=== PATIENT | male | born 1955 | race Caucasian/White ===

== ENCOUNTER → 2020-02-23 19:00 | Outpatient (ROUT) | payer OTHER, SELFPAY ==
[2020-02-23 19:24] LABS: Add Manual Diff / Slide Review NO; Basophils Absolute Auto 100 /uL (0-100); Basophils Percent Auto 0.9 % (0-2); Eosinophils Absolute Auto 0 /uL (0-450); Eosinophils Percent Auto 0.3 % (2-4); Hematocrit 46.3 % (41-53); Hemoglobin 15.4 g/dL (13.5-17.5); Lymphocytes Absolute Auto 1200 /uL (1100-4500); Lymphocytes Percent Auto 13.2 % (25-40); Mean Corpuscular HGB Conc 33.3 % (30-36); Mean Corpuscular Volume 96.1 fL (80-100); Monocytes Absolute Auto 600 /uL (0-900); Neutrophils Absolute Auto 7100 /uL (1500-7000); Neutrophils Percent Auto 78.6 % (50-75); Platelet Count 404 X10^3/uL (150-400); Red Blood Cell Count 4.82 X10^6/uL (4.5-5.9); Red Cell Distribution Width 12.6 % (11.6-14.8)
[2020-02-23 19:29] LABS: HEMOLYSIS < 15 (0-50)
[2020-02-23 19:38] LABS: Alanine Aminotransferase 34 IU/L (<50); Albumin Globulin Ratio 1.4 (1.0-2.8); Alkaline Phosphatase 72 U/L (38-126); Aspartate Aminotransferase 28 IU/L (17-59); BUN Creatinine Ratio 18.6 (6-22); Bilirubin Total 0.4 mg/dL (0.2-1.3); Blood Urea Nitrogen 13 mg/dL (9-20); Calcium 9.6 mg/dL (8.4-10.2); Carbon Dioxide 27 mmol/L (22-32); Chloride 101 mmol/L (98-107); Cholesterol 171 mg/dL (140-199); Estimated Glomerular Filt Rate > 60.0 mL/min (>60); Globulin 2.8 g/dL (1.7-4.1); Glucose 125 mg/dL (80-110); HDL Cholesterol 63 mg/dL (40-60); LDL Cholesterol Calculated 84 mg/dL (<100); Potassium 4.3 mmol/L (3.4-5.1); Sodium 136 mmol/L (137-145); Total Protein 6.8 g/dL (6.3-8.2); Triglycerides 119 mg/dL (35-150)
[2020-02-26 16:08] LABS: Prostate Specific Antigen 0.348 ng/mL (0.10-4.00)
== END ==
PROVIDERS: Visit Provider Internal Medicine
DX: R53.83 Other fatigue (principal); E78.2 Mixed hyperlipidemia
CPT/HCPCS: 80053; 80061; 84153; 84443; 85025

== ENCOUNTER → 2022-02-17 09:59 | Outpatient (CLI) | payer OTHER, SELFPAY ==
[2022-02-17 12:19] LABS: Hematocrit 40.7 % (41-53); Hemoglobin 14.3 g/dL (13.5-17.5); Mean Corpuscular HGB Conc 35.2 % (30-36); Mean Corpuscular Hemoglobin 32.9 PG (26-34); Mean Corpuscular Volume 93.3 fL (80-100); Platelet Count 305 X10^3/uL (150-400); Red Blood Cell Count 4.36 X10^6/uL (4.5-5.9); Red Cell Distribution Width 12.8 % (11.6-14.8); White Blood Cell Count 6.2 X10^3/uL (4.5-11.0)
[2022-02-17 12:55] LABS: Alanine Aminotransferase 26 IU/L (<50); Albumin 4.3 g/dL (3.5-5.0); Albumin Globulin Ratio 1.7 (1.0-2.8); Alkaline Phosphatase 66 U/L (38-126); Aspartate Aminotransferase 26 IU/L (17-59); BUN Creatinine Ratio 14.6 (6-22); Bilirubin Total 0.4 mg/dL (0.2-1.3); Blood Urea Nitrogen 12 mg/dL (9-20); Calcium 9.3 mg/dL (8.4-10.2); Carbon Dioxide 26 mmol/L (22-32); Chloride 103 mmol/L (98-107); Cholesterol 160 mg/dL (140-199); Estimated Glomerular Filt Rate > 60 mL/min (>60); Globulin 2.6 g/dL (1.7-4.1); Glucose 87 mg/dL (80-110); HDL Cholesterol 58 mg/dL (40-60); HEMOLYSIS < 15 (0-50); LDL Cholesterol Calculated 84 mg/dL (<100); Potassium 4.3 mmol/L (3.4-5.1); Sodium 138 mmol/L (137-145); Total Protein 6.9 g/dL (6.3-8.2); Triglycerides 92 mg/dL (35-150)
[2022-02-17 13:26] LABS: Prostate Specific Antigen 0.596 ng/mL (0.10-4.00)
[2022-02-17 14:18] LABS: TSH w/ Reflex to FT4 1.52 uIU/mL (0.47-4.68)
== END ==
PROVIDERS: PCP Internal Medicine; Referring Provider Internal Medicine; Visit Provider Internal Medicine
DX: Z00.00 Encounter for general adult medical examination without abnormal findings (principal); E78.2 Mixed hyperlipidemia; N52.9 Male erectile dysfunction, unspecified
CPT/HCPCS: 36415; 80053; 80061; 84153; 84443; 85027

== ENCOUNTER 2022-04-28 10:17 | Emergency (ER) | payer OTHER, SELFPAY ==
[2022-04-28 10:20] VITALS: BP 174/83; PULSE 113; RESP 22; TEMP 36.6; O2SAT 94; BMI 24.2
--- NOTE | 2022-04-28 10:29 | DI.RAD.S_ITS ---
PROCEDURE: XR CHEST 1V INDICATIONS: chest pain TECHNIQUE: One view of the chest was acquired. COMPARISON: None. FINDINGS: Surgical changes and devices: None. Lungs and pleura: Lungs are clear. No pleural effusions or pneumothorax. Mediastinum: Mediastinal contours appear normal. Heart size is normal. Bones and chest wall: No suspicious bony lesions. Overlying soft tissues appear unremarkable. IMPRESSION: No acute pulmonary process. Dictated by: Magdalena Matute M.D. on 04/28/2022 at 11:15 Approved by: Magdalena Matute M.D. on 04/28/2022 at 11:15
--- NOTE | 2022-04-28 10:51 | ED_ITS ---
HPI - Chest Pain General Chief Complaint: Chest Pain Stated Complaint: hasnt sleep in days heart racing Time Seen by Provider: 04/28/22 10:37 Source: patient Mode of arrival: Ambulatory Limitations: no limitations History of Present Illness HPI narrative: Patient has a 67-year-old gentleman that complains of insomnia palpitations anxiety chest ago for at rest but also with exertion and was sometimes dyspnea. Patient does have history of hypercholesteremia. He did see his primary care and was placed on lorazepam to help for anxiety and insomnia. He states this is most stress he has had in life, this includes his employment/family and finances. He works for the [employer]. Blood pressure and heart rate noted. Patient does appear very anxious. Is very fidgety with his hands and feet. Denies any chest discomfort at this time. Denies any alcohol abuse or drug abuse. No previous history of echocardiogram or stress test. No primary family history coronary artery disease. No syncope no diaphoresis no nausea. Patient has not used erectile dysfunction medication for over a month. Related Data Previous Rx's Medication Instructions Recorded rosuvastatin 10 mg tablet 10 mg PO DAILY #90 tabs 11/07/21 sildenafil 100 mg tablet 100 mg PO DAILY PRN erectile 02/23/22 dysfunction #30 tabs lorazepam 0.5 mg tablet 0.5 mg PO BID PRN anxiety #20 tabs 05/03/22 mirtazapine 15 mg tablet 15 mg PO BEDTIME #30 tabs 05/03/22 Allergies Allergy/AdvReac Type Severity Reaction Status Date / Time Penicillins Allergy Mild Rash Verified 05/03/22 12:05 Review of Systems Review of Systems Narrative: GENERAL: negative chills, fatigue, malaise, fever, negative sweats. HEENT: negative sinus pain, ear pain, sore throat RESPIRATORY: Pots dyspnea, negative cough CARDIOVASCULAR: Positive chest pain, palpitations, negative diaphoresis/syncope GASTROINTESTINAL: negative nausea, vomiting, abdominal pain : negative dysuria, frequency, hematuria MUSCULOSKELETAL: negative muscle or bony pain SKIN: negative rash, skin lesions NEUROLOGIC: negative weakness, numbness PSYCH: Positive anxiety ROS Unobtainable: All systems reviewed & are unremarkable except as noted in HPI and below Patient History Medical History (Updated 05/03/22 @ 13:08 by Luca Rock MD) Actinic keratoses Chicken pox (~1960) Erectile dysfunction Family history of colon cancer Generalized anxiety disorder Mixed hyperlipidemia Synovial cyst of popliteal space [[place]], right knee Viral URI with cough Surgical History Anesthesia History of hand surgery (~1965) Family History Father Hyperlipidemia Mother Mental health problem Anxiety Brother Hyperlipidemia Sister Hyperlipidemia Alzheimer's disease 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 EYES: Pupils equal round No scleral icterus. ENT: Mucous membranes moist. NECK: Trachea midline. CARDIOVASCULAR: Regular rate and rhythm without murmurs RESPIRATORY: Clear to auscultation. Breath sounds equal bilaterally. No wheezes, rales, or rhonchi. GASTROINTESTINAL: Abdomen soft, non-tender EXTREMITIES: No gross deformities. BACK: No flank tenderness. NEURO: AOx4. SKIN: Warm and dry PSYCH: Is very anxious, is cooperative Initial Vital Signs Initial Vital Signs: Vital Signs Temperature 97.8 F 04/28/22 10:20 Pulse Rate 113 H 04/28/22 10:20 Respiratory Rate 22 04/28/22 10:20 Blood Pressure 174/83 H 04/28/22 10:20 Pulse Oximetry 94 04/28/22 10:20 Oxygen Delivery Method 04/28/22 10:20 Scores HEART Score Heart Score history: Slightly Suspicious Heart Score EKG: Normal Heart Score Age: > or = 65 years old Heart Score risk factors: 1-2 risk factors Heart Score troponin: < or = to normal limit Heart Score Total: 3 Course Course Course Narrative: No new issues during course of stay Orders Ordered: Discontinued Medications Acetaminophen (Acetaminophen 325 Mg Tablet) 975 mg PO NOW ONE Stop: 04/28/22 11:46 Last Admin: 04/28/22 12:35 Dose: Not Given Documented By: SUSAN Aspirin (Aspirin 81 Mg Chew Tab) 324 mg PO NOW ONE Stop: 04/28/22 10:30 Last Admin: 04/28/22 11:09 Dose: 324 mg Documented By: SUSAN Nitroglycerin (Nitroglycerin Oint 1 Inch/Gm Oint...G.) 0.5 inch TOP NOW ONE Stop: 04/28/22 11:46 Last Admin: 04/28/22 12:34 Dose: Not Given Documented By: SUSAN Reevaluation(s) Reevaluation #1: Blood pressure 139/73/pulse 89. Patient resting comfortably at this time however now has mild left chest discomfort. Non reproducible. Blood pressure/v itals improved without intervention. Reviewed results with patient so far. Agrees to try nitro paste Time: 11:45 Reevaluation #2: Nitropaste and IV fluids and Tylenol were not administered from nursing staff. Sister and [id number] are at bedside. I spoke with patient and family regarding my discussion with cardiology. At this time, symptoms likely anxiety driven. Recommends outpatient follow-up with primary care for re-evaluation and outpatient stress test and echocardiogram. I will call primary care now to rev iew results and treatment plan as reviewed with scrap hoist operator. Time: 12:40 Consultations Consultation #1: Spoke with scrap hoist operator dr josé, spoke with her that I had ordered echocardiogram and treadmill stress test for patient for today. However, she states to cancel those tests. Patient can follow-up with primary care for re- evaluation if needs on outpatient basis. Patient symptoms likely anxiety driven. Has low heart score and risk factors. Time: 12:30 Consultation #2: Spoke with primary care, dr rock, agrees with treatment plan and will see patient next week for re-evaluation and may have anxiety medication changes or therapy for patient's stress. Time: 12:45 Vital Signs Vital signs: Vital Signs - 8 hr 04/28/22 10:20 04/28/22 11:00 04/28/22 11:13 Temperature 97.8 F Pulse Rate 113 H 93 H 95 H Respiratory Rate 22 13 22 Blood Pressure 174/83 H Pulse Oximetry 94 92 94 Oxygen Delivery Method Room Air 04/28/22 11:13 04/28/22 11:30 04/28/22 11:30 Temperature Pulse Rate 90 Respiratory Rate 14 Blood Pressure 136/67 139/73 Pulse Oximetry 94 Oxygen Delivery Method 04/28/22 12:00 04/28/22 12:00 Temperature Pulse Rate 85 Respiratory Rate 11 L Blood Pressure 136/66 Pulse Oximetry 96 Oxygen Delivery Method MDM - Chest Pain Differential Diagnosis Differential diagnosis: Likely stable angina, unstable angina pectoris, atypical chest pain, chest pain and other (Anxiety) Lab Data Result diagrams: 04/28/22 10:50 04/28/22 10:50 Labs: Lab Results 04/28/22 04/28/22 04/28/22 Range/Units 10:50 10:50 10:50 WBC 10.2 (4.5-11.0) X10^3/uL RBC 4.41 L (4.5-5.9) X10^6/uL Hgb 14.0 (13.5-17.5) g/dL Hct 41.0 (41-53) % MCV 92.9 (80-100) fL MCH 31.7 (26-34) PG MCHC 34.1 (30-36) % RDW 12.6 (11.6-14.8) % Plt Count 463 H (150-400) X10^3/uL Neut % (Auto) 81.6 H (50-75) % Lymph % (Auto) 9.5 L (25-40) % [place] % (Auto) 8.0 (3-14) % Eos % (Auto) 0.6 L (2-4) % Baso % (Auto) 0.3 (0-2) % Neut # (Auto) 8300 H (2112-3834) /uL Lymph # (Auto) 1000 L (3515-2867) /uL [place] # (Auto) 800 (0-900) /uL Eos # (Auto) 100 (0-450) /uL Baso # (Auto) 0 (0-100) /uL PT 13.5 H (10.1-12.7) SECONDS INR 1.2 (0.9-1.3) APTT 30 (26-36) SECONDS D-Dimer (<500) ng/ml Sodium 133 L (137-145) mmol/L Potassium 4.0 (3.4-5.1) mmol/L Chloride 99 (98-107) mmol/L Carbon Dioxide 24 (22-32) mmol/L BUN 12 (9-20) mg/dL Creatinine 0.65 L (0.66-1.25) mg/dL Estimated GFR > 60 (>60) mL/min BUN/Creatinine Ratio 18.5 (6-22) Glucose 156 H (80-110) mg/dL Calcium 9.1 (8.4-10.2) mg/dL Magnesium 2.0 (1.6-2.3) mg/dL Total Bilirubin 0.3 (0.2-1.3) mg/dL AST 20 (17-59) IU/L ALT 35 (<50) IU/L Alkaline Phosphatase 83 (38-126) U/L Total Creatine Kinase 62 (55-170) U/L CK-MB (CK-2) TNP CK-MB (CK-2) Rel Index TNP Troponin I < 0.012 (0.01-0.034) ng/mL Total Protein 7.2 (6.3-8.2) g/dL Albumin 4.0 (3.5-5.0) g/dL Globulin 3.2 (1.7-4.1) g/dL Albumin/Globulin Ratio 1.3 (1.0-2.8) Lipase 110 (23-300) U/L 04/28/22 Range/Units 10:50 WBC (4.5-11.0) X10^3/uL RBC (4.5-5.9) X10^6/uL Hgb (13.5-17.5) g/dL Hct (41-53) % MCV (80-100) fL MCH (26-34) PG MCHC (30-36) % RDW (11.6-14.8) % Plt Count (150-400) X10^3/uL Neut % (Auto) (50-75) % Lymph % (Auto) (25-40) % [place] % (Auto) (3-14) % Eos % (Auto) (2-4) % Baso % (Auto) (0-2) % Neut # (Auto) (1263-8425) /uL Lymph # (Auto) (4900-5946) /uL [place] # (Auto) (0-900) /uL Eos # (Auto) (0-450) /uL Baso # (Auto) (0-100) /uL PT (10.1-12.7) SECONDS INR (0.9-1.3) APTT (26-36) SECONDS D-Dimer 263 (<500) ng/ml Sodium (137-145) mmol/L Potassium (3.4-5.1) mmol/L Chloride (98-107) mmol/L Carbon Dioxide (22-32) mmol/L BUN (9-20) mg/dL Creatinine (0.66-1.25) mg/dL Estimated GFR (>60) mL/min BUN/Creatinine Ratio (6-22) Glucose (80-110) mg/dL Calcium (8.4-10.2) mg/dL Magnesium (1.6-2.3) mg/dL Total Bilirubin (0.2-1.3) mg/dL AST (17-59) IU/L ALT (<50) IU/L Alkaline Phosphatase (38-126) U/L Total Creatine Kinase (55-170) U/L CK-MB (CK-2) CK-MB (CK-2) Rel Index Troponin I (0.01-0.034) ng/mL Total Protein (6.3-8.2) g/dL Albumin (3.5-5.0) g/dL Globulin (1.7-4.1) g/dL Albumin/Globulin Ratio (1.0-2.8) Lipase (23-300) U/L Imaging Data Chest x-ray: Radiologist's Impression: [address] [address] XRay Report Signed Patient: Floyd Burciaga MR#: [id number] : 1955 Acct:[id number] Age/Sex: 67 / M Date of Service: 04/28/22 Loc: ED Accession Number: [id number] ?? Procedure: XR chest 1V Ordering Provider: Shreyas Bonilla MD PROCEDURE:? XR CHEST 1V ? INDICATIONS:? chest pain ? TECHNIQUE:? One view of the chest was acquired.? ? COMPARISON:? None. ? FINDINGS:? ? Surgical changes and devices:? None.? ? Lungs and pleura:? Lungs are clear.? No pleural effusions or pneumothorax.? ? Mediastinum:? Mediastinal contours appear normal.? Heart size is normal.? ? Bones and chest wall:? No suspicious bony lesions.? Overlying soft tissues appear unremarkable.? ? IMPRESSION:? No acute pulmonary process. ? ? Dictated by: Magdalena Matute M.D. on 04/28/2022 at 11:15 ? ? Approved by: Magdalena Matute M.D. on 04/28/2022 at 11:15 ? ECG Data Interpretation: Sinus tachycardia rate 101 otherwise normal EKG no ST elevation or depression MDM Narrative Medical decision making narrative: 67-year-old male patient here for complaints of anxiety insomnia palpitations tremors and chest discomfort. Has had a lot of stressors in his life from work and family and finances. Only getting about 1 hour sleep at night. Discomfort in the chest sometimes reproducible sometimes not. Sometimes with exertion sometimes at rest. Sometimes with a lot of anxiety. Differential diagnosis includes but not limited to aortic dissection pulmonary embolism atypical chest pain angina/unstable angina. I did review images as well as EKG and blood work. I did speak with cardiology services and recommend discharge home for outpatient stress test and echocardiogram. Symptoms likely stemming from his anxiety. Return precautions reviewed with patient. No repeat troponin at this time. Symptoms ongoing for 2 weeks. Discharge Plan Departure Patient Disposition: Home Clinical Impression: Anxiety Chest pain Qualifiers: Chest pain type: unspecified Qualified Code(s): R07.9 - Chest pain, unspecified Instructions: DI for Anxiety -- Adult, DI for Chest Pain Activity Restrictions/Additional Instructions: Please see family doctor next week for re-evaluation and medication review for anxiety as well as possible therapy. He has been contacted today for your visit here and has reviewed your results. Cardiology Services have been contacted and recommend further outpatient testing with your family doctor hand. Please do take time off work this weekend, work note has been provided for you. Do try to find a way to relax and get good rest. Return if worse if any questions or concerns Prescriptions: No Action rosuvastatin 10 mg tablet 10 mg PO DAILY Qty: 90 1RF sildenafil 100 mg tablet 100 mg PO DAILY PRN (Reason: erectile dysfunction) Qty: 30 5RF mirtazapine 15 mg tablet 15 mg PO BEDTIME Qty: 30 2RF lorazepam 0.5 mg tablet 0.5 mg PO BID PRN (Reason: anxiety) Qty: 20 1RF Referrals: Luca Rock MD [Primary Care Provider] - Stand Alone Forms: Work Release Note Visit Report Forms: Patient Portal/API
[2022-04-28 11:00] VITALS: PULSE 93; RESP 13; O2SAT 92
[2022-04-28 11:04] LABS: Add Manual Diff / Slide Review NO; Basophils Absolute Auto 0 /uL (0-100); Basophils Percent Auto 0.3 % (0-2); Eosinophils Absolute Auto 100 /uL (0-450); Eosinophils Percent Auto 0.6 % (2-4); Lymphocytes Absolute Auto 1000 /uL (1100-4500); Lymphocytes Percent Auto 9.5 % (25-40); Mean Corpuscular HGB Conc 34.1 % (30-36); Mean Corpuscular Hemoglobin 31.7 PG (26-34); Mean Corpuscular Volume 92.9 fL (80-100); Monocytes Absolute Auto 800 /uL (0-900); Neutrophils Absolute Auto 8300 /uL (1500-7000); Neutrophils Percent Auto 81.6 % (50-75); Platelet Count 463 X10^3/uL (150-400); Red Blood Cell Count 4.41 X10^6/uL (4.5-5.9); Red Cell Distribution Width 12.6 % (11.6-14.8); White Blood Cell Count 10.2 X10^3/uL (4.5-11.0)
[2022-04-28] MEDS: ASPIRIN 81 MG CHEW TAB 324 MG PO (11:09)
[2022-04-28 11:12] LABS: INR 1.2 (0.9-1.3); Prothrombin Time 13.5 SECONDS (10.1-12.7)
[2022-04-28 11:13] VITALS: BP 136/67; PULSE 95; RESP 22; O2SAT 94
[2022-04-28 11:15] LABS: PTT Partial Thromboplastin Tim 30 SECONDS (26-36)
[2022-04-28 11:16] LABS: Alanine Aminotransferase 35 IU/L (<50); Albumin Globulin Ratio 1.3 (1.0-2.8); Alkaline Phosphatase 83 U/L (38-126); Aspartate Aminotransferase 20 IU/L (17-59); BUN Creatinine Ratio 18.5 (6-22); Bilirubin Total 0.3 mg/dL (0.2-1.3); Blood Urea Nitrogen 12 mg/dL (9-20); Calcium 9.1 mg/dL (8.4-10.2); Carbon Dioxide 24 mmol/L (22-32); Chloride 99 mmol/L (98-107); Creatine Kinase 62 U/L (55-170); Estimated Glomerular Filt Rate > 60 mL/min (>60); Globulin 3.2 g/dL (1.7-4.1); Glucose 156 mg/dL (80-110); HEMOLYSIS < 15 (0-50); Lipase 110 U/L (23-300); Sodium 133 mmol/L (137-145); Total Protein 7.2 g/dL (6.3-8.2)
[2022-04-28 11:19] LABS: D Dimer 263 ng/ml (<500)
[2022-04-28 11:28] LABS: Troponin I < 0.012 ng/mL (0.01-0.034)
[2022-04-28 11:30] VITALS: BP 139/73; PULSE 90; RESP 14; O2SAT 94
[2022-04-28 12:00] VITALS: BP 136/66; PULSE 85; RESP 11; O2SAT 96
== END 2022-04-28 13:25 | disposition home or self-care (01) ==
PROVIDERS: Emergency Provider Emergency Medicine; PCP Internal Medicine
DX: R07.9 Chest pain, unspecified (principal); F41.9 Anxiety disorder, unspecified
CPT/HCPCS: 36415; 71045; 80053; 82550; 83690; 83735; 84484; 85025; 85379; 85610; 85730; 93005; 99284

== ENCOUNTER 2022-05-22 19:33 | Emergency (ER) | payer OTHER, SELFPAY ==
[2022-05-22 19:44] VITALS: BP 135/81; PULSE 109; RESP 30; TEMP 36.4; O2SAT 97; BMI 23.6
--- NOTE | 2022-05-22 21:54 | ED.ANXIETY ---
HPI - Anxiety <Bulmaro Murcia DO - Last Filed: 05/23/22 16:14> General Chief Complaint: Anxiety Stated Complaint: panic attack Time Seen by Provider: 05/22/22 21:33 Mode of arrival: Wheelchair History of Present Illness HPI narrative: 67-year-old male nonsmoker with history of hyperlipidemia, ED in generalized anxiety disorder presents with daughter and and chief complaint of worsening if not crippling anxiety that is greatly affecting his life. He denies any suicidal or homicidal ideations. He has been battling increasing episodes of anxiety for least the past few months and has been managed by his primary care provider. His primary triggers appear to be surrounding his financial situation and some family issues. He is not been eating or drinking as much and despite having access to prescription for lorazepam which initially was as needed but for the past month has been written b.i.d. his symptoms continue to worsen. He denies any auditory or visual hallucinations. Denies any alcohol or street drugs. He is very fearful and often times so overwhelmed by anxiety that he is unable to speak or communicate, he is had a rapid decline over the past few weeks. He and family are requesting help and would even consider the concept of hospitalization if deemed necessary Related Data Previous Rx's Medication Instructions Recorded sildenafil 100 mg tablet 100 mg PO DAILY PRN erectile 02/23/22 dysfunction #30 tabs rosuvastatin 10 mg tablet 10 mg PO DAILY #90 tabs 05/08/22 mirtazapine 15 mg tablet 30 mg PO BEDTIME #60 tabs 05/25/22 Allergies Allergy/AdvReac Type Severity Reaction Status Date / Time Penicillins Allergy Mild Rash Verified 05/25/22 11:40 olanzapine AdvReac Severe dystonic Verified 05/25/22 13:14 reaction Review of Systems <Bulmaro Murcia DO - Last Filed: 05/23/22 16:14> Review of Systems Narrative: GENERAL: Denies chills, fatigue, malaise, fever, sweats. HEENT: Denies sinus pain, ear pain, sore throat, difficulty swallowing, dizziness. RESPIRATORY: Denies dyspnea, cough, wheezing, hemoptysis, sputum. CARDIOVASCULAR: Denies chest pain, palpitations, orthopnea, edema, GASTROINTESTINAL: Denies nausea, vomiting, abdominal pain, diarrhea, constipation, melena. : Denies dysuria, frequency, incontinence, hematuria, urinary retention. MUSCULOSKELETAL: denies weakness, joint pain, or bony pain SKIN: Denies rash, skin lesions, or other NEUROLOGIC: Denies weakness, headache, numbness, change in speech, confusion, seizures, incoordination. PSYCHIATRIC: See HPI 12 point review of systems is negative except for those stated above Patient History <Bulmaro Murcia DO - Last Filed: 05/23/22 16:14> Medical History Actinic keratoses Chicken pox (~1959) Erectile dysfunction Family history of colon cancer Generalized anxiety disorder Mixed hyperlipidemia Synovial cyst of popliteal space [[place]], right knee Viral URI with cough Surgical History Anesthesia History of hand surgery (~1964) Family History Father Hyperlipidemia Mother Mental health problem Anxiety Brother Hyperlipidemia Sister Hyperlipidemia Alzheimer's disease Social History (System 05/24/22 @ 09:43 by Ileana Castro) details: (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 Well-developed patient, in obvious distress, tearful, paranoid, rapid breathing HEAD: Atraumatic. Normocephalic. EYES: Pupils equal round and reactive. Extraocular motions intact. No scleral icterus. No injection or drainage. ENT: Nose without bleeding, purulent drainage. Throat without erythema, tonsillar hypertrophy or exudate. Airway patent. NECK: Trachea midline. Non tender CARDIOVASCULAR: Regular rate and rhythm without murmurs, gallops, or rubs. RESPIRATORY: Clear to auscultation. Breath sounds equal bilaterally. No wheezes, rales, or rhonchi. GASTROINTESTINAL: Abdomen soft, non-tender, nondistended. EXTREMITIES: No edema or joint tenderness. BACK: Nontender without deformity or crepitance. No flank tenderness. NEURO: AOx3. SKIN: No rash or erythema of visible areas Initial Vital Signs Initial Vital Signs: Vital Signs Temperature 97.6 F 05/22/22 19:44 Pulse Rate 109 H 05/22/22 19:44 Respiratory Rate 30 H 05/22/22 19:44 Blood Pressure 135/81 05/22/22 19:44 Pulse Oximetry 97 05/22/22 19:44 Oxygen Delivery Method 05/22/22 19:44 <Shreyas Bonilla MD - Last Filed: 05/29/22 08:24> Initial Vital Signs Initial Vital Signs: Vital Signs Temperature 97.6 F 05/22/22 19:44 Pulse Rate 109 H 05/22/22 19:44 Respiratory Rate 30 H 05/22/22 19:44 Blood Pressure 135/81 05/22/22 19:44 Pulse Oximetry 97 05/22/22 19:44 Oxygen Delivery Method 05/22/22 19:44 Course <Bulmaro Murcia DO - Last Filed: 05/23/22 16:14> Orders Ordered: Discontinued Medications Lorazepam (Lorazepam 2 Mg/Ml Inj) 0.5 mg IV NOW ONE Stop: 05/22/22 23:38 Last Admin: 05/23/22 00:07 Dose: 0.5 mg Documented By: SANTOS Lorazepam (Lorazepam 2 Mg/Ml Inj) 1 mg IV NOW ONE Stop: 05/23/22 06:21 Last Admin: 05/23/22 06:26 Dose: 1 mg Documented By: VALENTIN Lorazepam (Lorazepam 2 Mg/Ml Inj) 1 mg IV NOW ONE Stop: 05/23/22 13:04 Last Admin: 05/23/22 13:36 Dose: 1 mg Documented By: SUSAN Potassium Chloride (Potassium Chloride 20 Meq/15 Ml Udc) 40 meq PO NOW ONE Stop: 05/23/22 06:21 Last Admin: 05/23/22 06:26 Dose: 40 meq Documented By: VALENTIN Reevaluation(s) Reevaluation #1: After brief initial evaluation I have had a much length ear bedside discussion with patient and his family and we sure the opinion that 1st performing a medical clearance and then requesting consultation by social Work is in his best interest. He wants help and recognizes the need. His anxieties certainly adversely affecting his ability to care for himself Vital Signs Vital signs: Vital Signs - 8 hr 05/23/22 12:25 05/23/22 12:26 05/23/22 12:26 Pulse Rate 107 H 107 H Blood Pressure 182/88 H Pulse Oximetry 97 98 05/23/22 12:30 05/23/22 13:00 05/23/22 13:30 Pulse Rate 104 H 106 H 85 Blood Pressure Pulse Oximetry 97 95 96 05/23/22 14:00 05/23/22 14:30 05/23/22 14:54 Pulse Rate 81 80 81 Blood Pressure Pulse Oximetry 94 93 93 05/23/22 14:55 Pulse Rate Blood Pressure 140/71 Pulse Oximetry <Shreyas Bonilla MD - Last Filed: 05/29/22 08:24> Course Course Narrative: May 23, 2022 at 7:[address] Murcia, patient will need placement. Social work to see patient. Patient has seen primary care for outpatient management and attempt for anxiety control with Ativan. Orders Ordered: Discontinued Medications Lorazepam (Lorazepam 2 Mg/Ml Inj) 0.5 mg IV NOW ONE Stop: 05/22/22 23:38 Last Admin: 05/23/22 00:07 Dose: 0.5 mg Documented By: SANTOS Lorazepam (Lorazepam 2 Mg/Ml Inj) 1 mg IV NOW ONE Stop: 05/23/22 06:21 Last Admin: 05/23/22 06:26 Dose: 1 mg Documented By: VALENTIN Lorazepam (Lorazepam 2 Mg/Ml Inj) 1 mg IV NOW ONE Stop: 05/23/22 13:04 Last Admin: 05/23/22 13:36 Dose: 1 mg Documented By: SUSAN Potassium Chloride (Potassium Chloride 20 Meq/15 Ml Udc) 40 meq PO NOW ONE Stop: 05/23/22 06:21 Last Admin: 05/23/22 06:26 Dose: 40 meq Documented By: VALENTIN Reevaluation(s) Reevaluation #2: Patient is awake alert and oriented x3. Clear speech. He does not want to be admitted to the hospital or go to psychiatric facility. Denies SI or HI. He does agree with evaluation by social lizzeth Thomas for outpatient follow-up in 2 days with his primary care for revision of his anxiety medications. Would not deep more maintenance medication other than lorazepam. Time: 14:52 Consultations Consultation #1: Spoke with social lizzeth Thomas. Patient is much more relaxed. Denies any SI or HI. Does not want hospitalization. Patient not meeting criteria for being detained. He is cooperative and oriented. He does have plan in place to follow up with primary care this for medication changes. Time: 14:53 Vital Signs Vital signs: Vital Signs - 8 hr 05/23/22 12:25 05/23/22 12:26 05/23/22 12:26 Pulse Rate 107 H 107 H Blood Pressure 182/88 H Pulse Oximetry 97 98 05/23/22 12:30 05/23/22 13:00 05/23/22 13:30 Pulse Rate 104 H 106 H 85 Blood Pressure Pulse Oximetry 97 95 96 05/23/22 14:00 05/23/22 14:30 05/23/22 14:54 Pulse Rate 81 80 81 Blood Pressure Pulse Oximetry 94 93 93 05/23/22 14:55 Pulse Rate Blood Pressure 140/71 Pulse Oximetry MDM - Anxiety <Bulmaro Murcia, - Last Filed: 05/23/22 16:14> Lab Data Result diagrams: 05/23/22 00:09 05/23/22 00:09 Labs: Lab Results 05/23/22 05/23/22 05/23/22 Range/Units 00:09 00:09 00:09 WBC (4.5-11.0) X10^3/uL RBC (4.5-5.9) X10^6/uL Hgb (13.5-17.5) g/dL Hct (41-53) % MCV (80-100) fL MCH (26-34) PG MCHC (30-36) % RDW (11.6-14.8) % Plt Count (150-400) X10^3/uL Neut % (Auto) (50-75) % Lymph % (Auto) (25-40) % Reagan % (Auto) (3-14) % Eos % (Auto) (2-4) % Baso % (Auto) (0-2) % Neut # (Auto) (8378-5475) /uL Lymph # (Auto) (9533-9261) /uL Reagan # (Auto) (0-900) /uL Eos # (Auto) (0-450) /uL Baso # (Auto) (0-100) /uL D-Dimer < 215 (<500) ng/ml Sodium (137-145) mmol/L Potassium (3.4-5.1) mmol/L Chloride (98-107) mmol/L Carbon Dioxide (22-32) mmol/L BUN (9-20) mg/dL Creatinine (0.66-1.25) mg/dL Estimated GFR (>60) mL/min BUN/Creatinine Ratio (6-22) Glucose (80-110) mg/dL Calcium (8.4-10.2) mg/dL Magnesium (1.6-2.3) mg/dL Total Bilirubin (0.2-1.3) mg/dL AST (17-59) IU/L ALT (<50) IU/L Alkaline Phosphatase (38-126) U/L Total Creatine Kinase (55-170) U/L CK-MB (CK-2) (<2.37) ng/mL CK-MB (CK-2) Rel Index (1.5-5.0) % Troponin I (0.01-0.034) ng/mL Total Protein (6.3-8.2) g/dL Albumin (3.5-5.0) g/dL Globulin (1.7-4.1) g/dL Albumin/Globulin Ratio (1.0-2.8) Lipase (23-300) U/L TSH 1.66 (0.47-4.68) uIU/mL Urine RBC (0-5/HPF) Urine WBC (0-5/HPF) Ur Squamous Epith Cells (0-5/HPF) Urine Bacteria (None) Urine Mucus (Negative) Ethyl Alcohol < 10 ( - 10) mg/dL SARS-CoV-2 (PCR) (Negative) Influenza A (RT-PCR) (NEGATIVE) Influenza B (RT-PCR) (NEGATIVE) RSV (PCR) (Negative) 05/23/22 05/23/22 05/23/22 Range/Units 00:09 00:09 00:13 WBC 8.1 (4.5-11.0) X10^3/uL RBC 4.34 L (4.5-5.9) X10^6/uL Hgb 13.9 (13.5-17.5) g/dL Hct 40.7 L (41-53) % MCV 93.9 (80-100) fL MCH 32.0 (26-34) PG MCHC 34.1 (30-36) % RDW 12.7 (11.6-14.8) % Plt Count 391 (150-400) X10^3/uL Neut % (Auto) 63.7 (50-75) % Lymph % (Auto) 26.2 (25-40) % Reagan % (Auto) 8.1 (3-14) % Eos % (Auto) 1.1 L (2-4) % Baso % (Auto) 0.9 (0-2) % Neut # (Auto) 5100 (9612-0326) /uL Lymph # (Auto) 2100 (7634-4358) /uL Reagan # (Auto) 700 (0-900) /uL Eos # (Auto) 100 (0-450) /uL Baso # (Auto) 100 (0-100) /uL D-Dimer (<500) ng/ml Sodium 137 (137-145) mmol/L Potassium 3.1 L (3.4-5.1) mmol/L Chloride 104 (98-107) mmol/L Carbon Dioxide 20 L (22-32) mmol/L BUN 20 (9-20) mg/dL Creatinine 0.78 (0.66-1.25) mg/dL Estimated GFR > 60 (>60) mL/min BUN/Creatinine Ratio 25.6 H (6-22) Glucose 95 (80-110) mg/dL Calcium 8.7 (8.4-10.2) mg/dL Magnesium 2.1 (1.6-2.3) mg/dL Total Bilirubin 0.6 (0.2-1.3) mg/dL AST 33 (17-59) IU/L ALT 33 (<50) IU/L Alkaline Phosphatase 76 (38-126) U/L Total Creatine Kinase 389 H (55-170) U/L CK-MB (CK-2) 5.48 H (<2.37) ng/mL CK-MB (CK-2) Rel Index 1.4 L (1.5-5.0) % Troponin I < 0.012 (0.01-0.034) ng/mL Total Protein 6.8 (6.3-8.2) g/dL Albumin 3.9 (3.5-5.0) g/dL Globulin 2.9 (1.7-4.1) g/dL Albumin/Globulin Ratio 1.3 (1.0-2.8) Lipase 126 (23-300) U/L TSH (0.47-4.68) uIU/mL Urine RBC (0-5/HPF) Urine WBC (0-5/HPF) Ur Squamous Epith Cells (0-5/HPF) Urine Bacteria (None) Urine Mucus (Negative) Ethyl Alcohol ( - 10) mg/dL SARS-CoV-2 (PCR) Negative (Negative) Influenza A (RT-PCR) Flu a negative (NEGATIVE) Influenza B (RT-PCR) Flu b negative (NEGATIVE) RSV (PCR) Negative (Negative) 05/23/22 Range/Units 00:25 WBC (4.5-11.0) X10^3/uL RBC (4.5-5.9) X10^6/uL Hgb (13.5-17.5) g/dL Hct (41-53) % MCV (80-100) fL MCH (26-34) PG MCHC (30-36) % RDW (11.6-14.8) % Plt Count (150-400) X10^3/uL Neut % (Auto) (50-75) % Lymph % (Auto) (25-40) % Reagan % (Auto) (3-14) % Eos % (Auto) (2-4) % Baso % (Auto) (0-2) % Neut # (Auto) (5412-7438) /uL Lymph # (Auto) (8014-2115) /uL Reagan # (Auto) (0-900) /uL Eos # (Auto) (0-450) /uL Baso # (Auto) (0-100) /uL D-Dimer (<500) ng/ml Sodium (137-145) mmol/L Potassium (3.4-5.1) mmol/L Chloride (98-107) mmol/L Carbon Dioxide (22-32) mmol/L BUN (9-20) mg/dL Creatinine (0.66-1.25) mg/dL Estimated GFR (>60) mL/min BUN/Creatinine Ratio (6-22) Glucose (80-110) mg/dL Calcium (8.4-10.2) mg/dL Magnesium (1.6-2.3) mg/dL Total Bilirubin (0.2-1.3) mg/dL AST (17-59) IU/L ALT (<50) IU/L Alkaline Phosphatase (38-126) U/L Total Creatine Kinase (55-170) U/L CK-MB (CK-2) (<2.37) ng/mL CK-MB (CK-2) Rel Index (1.5-5.0) % Troponin I (0.01-0.034) ng/mL Total Protein (6.3-8.2) g/dL Albumin (3.5-5.0) g/dL Globulin (1.7-4.1) g/dL Albumin/Globulin Ratio (1.0-2.8) Lipase (23-300) U/L TSH (0.47-4.68) uIU/mL Urine RBC 0-1/hpf (0-5/HPF) Urine WBC None seen (0-5/HPF) Ur Squamous Epith Cells 0-1 /hpf (0-5/HPF) Urine Bacteria Few (2-10) H (None) Urine Mucus 1+ H (Negative) Ethyl Alcohol ( - 10) mg/dL SARS-CoV-2 (PCR) (Negative) Influenza A (RT-PCR) (NEGATIVE) Influenza B (RT-PCR) (NEGATIVE) RSV (PCR) (Negative) Urine Dip Bedside Urine Glucose Negative Bedside Urine Bilirubin - Negative Bedside Urine Ketone +/- 5 Urine Specific [place] 1.025 Bedside Urine Occult Blood - Negative Bedside Urine pH 6.0 Bedside Urine Protein - Negative Bedside Urine Urobilinogen - Negative Bedside Urine Nitrite - Negative Bedside Urine Leukocytes - Negative Esterase <Shreyas Bonilla MD - Last Filed: 05/29/22 08:24> Differential Diagnosis Differential diagnosis: Likely acute anxiety and other (SI/HI) Lab Data Labs: Lab Results 05/23/22 05/23/22 05/23/22 Range/Units 00:09 00:09 00:09 WBC (4.5-11.0) X10^3/uL RBC (4.5-5.9) X10^6/uL Hgb (13.5-17.5) g/dL Hct (41-53) % MCV (80-100) fL MCH (26-34) PG MCHC (30-36) % RDW (11.6-14.8) % Plt Count (150-400) X10^3/uL Neut % (Auto) (50-75) % Lymph % (Auto) (25-40) % Reagan % (Auto) (3-14) % Eos % (Auto) (2-4) % Baso % (Auto) (0-2) % Neut # (Auto) (2565-8771) /uL Lymph # (Auto) (2553-4702) /uL Reagan # (Auto) (0-900) /uL Eos # (Auto) (0-450) /uL Baso # (Auto) (0-100) /uL D-Dimer < 215 (<500) ng/ml Sodium (137-145) mmol/L Potassium (3.4-5.1) mmol/L Chloride (98-107) mmol/L Carbon Dioxide (22-32) mmol/L BUN (9-20) mg/dL Creatinine (0.66-1.25) mg/dL Estimated GFR (>60) mL/min BUN/Creatinine Ratio (6-22) Glucose (80-110) mg/dL Calcium (8.4-10.2) mg/dL Magnesium (1.6-2.3) mg/dL Total Bilirubin (0.2-1.3) mg/dL AST (17-59) IU/L ALT (<50) IU/L Alkaline Phosphatase (38-126) U/L Total Creatine Kinase (55-170) U/L CK-MB (CK-2) (<2.37) ng/mL CK-MB (CK-2) Rel Index (1.5-5.0) % Troponin I (0.01-0.034) ng/mL Total Protein (6.3-8.2) g/dL Albumin (3.5-5.0) g/dL Globulin (1.7-4.1) g/dL Albumin/Globulin Ratio (1.0-2.8) Lipase (23-300) U/L TSH 1.66 (0.47-4.68) uIU/mL Urine RBC (0-5/HPF) Urine WBC (0-5/HPF) Ur Squamous Epith Cells (0-5/HPF) Urine Bacteria (None) Urine Mucus (Negative) Ethyl Alcohol < 10 ( - 10) mg/dL SARS-CoV-2 (PCR) (Negative) Influenza A (RT-PCR) (NEGATIVE) Influenza B (RT-PCR) (NEGATIVE) RSV (PCR) (Negative) 05/23/22 05/23/22 05/23/22 Range/Units 00:09 00:09 00:13 WBC 8.1 (4.5-11.0) X10^3/uL RBC 4.34 L (4.5-5.9) X10^6/uL Hgb 13.9 (13.5-17.5) g/dL Hct 40.7 L (41-53) % MCV 93.9 (80-100) fL MCH 32.0 (26-34) PG MCHC 34.1 (30-36) % RDW 12.7 (11.6-14.8) % Plt Count 391 (150-400) X10^3/uL Neut % (Auto) 63.7 (50-75) % Lymph % (Auto) 26.2 (25-40) % Reagan % (Auto) 8.1 (3-14) % Eos % (Auto) 1.1 L (2-4) % Baso % (Auto) 0.9 (0-2) % Neut # (Auto) 5100 (6685-0535) /uL Lymph # (Auto) 2100 (4896-3290) /uL Reagan # (Auto) 700 (0-900) /uL Eos # (Auto) 100 (0-450) /uL Baso # (Auto) 100 (0-100) /uL D-Dimer (<500) ng/ml Sodium 137 (137-145) mmol/L Potassium 3.1 L (3.4-5.1) mmol/L Chloride 104 (98-107) mmol/L Carbon Dioxide 20 L (22-32) mmol/L BUN 20 (9-20) mg/dL Creatinine 0.78 (0.66-1.25) mg/dL Estimated GFR > 60 (>60) mL/min BUN/Creatinine Ratio 25.6 H (6-22) Glucose 95 (80-110) mg/dL Calcium 8.7 (8.4-10.2) mg/dL Magnesium 2.1 (1.6-2.3) mg/dL Total Bilirubin 0.6 (0.2-1.3) mg/dL AST 33 (17-59) IU/L ALT 33 (<50) IU/L Alkaline Phosphatase 76 (38-126) U/L Total Creatine Kinase 389 H (55-170) U/L CK-MB (CK-2) 5.48 H (<2.37) ng/mL CK-MB (CK-2) Rel Index 1.4 L (1.5-5.0) % Troponin I < 0.012 (0.01-0.034) ng/mL Total Protein 6.8 (6.3-8.2) g/dL Albumin 3.9 (3.5-5.0) g/dL Globulin 2.9 (1.7-4.1) g/dL Albumin/Globulin Ratio 1.3 (1.0-2.8) Lipase 126 (23-300) U/L TSH (0.47-4.68) uIU/mL Urine RBC (0-5/HPF) Urine WBC (0-5/HPF) Ur Squamous Epith Cells (0-5/HPF) Urine Bacteria (None) Urine Mucus (Negative) Ethyl Alcohol ( - 10) mg/dL SARS-CoV-2 (PCR) Negative (Negative) Influenza A (RT-PCR) Flu a negative (NEGATIVE) Influenza B (RT-PCR) Flu b negative (NEGATIVE) RSV (PCR) Negative (Negative) 05/23/22 Range/Units 00:25 WBC (4.5-11.0) X10^3/uL RBC (4.5-5.9) X10^6/uL Hgb (13.5-17.5) g/dL Hct (41-53) % MCV (80-100) fL MCH (26-34) PG MCHC (30-36) % RDW (11.6-14.8) % Plt Count (150-400) X10^3/uL Neut % (Auto) (50-75) % Lymph % (Auto) (25-40) % Reagan % (Auto) (3-14) % Eos % (Auto) (2-4) % Baso % (Auto) (0-2) % Neut # (Auto) (9586-9589) /uL Lymph # (Auto) (1496-2227) /uL Reagan # (Auto) (0-900) /uL Eos # (Auto) (0-450) /uL Baso # (Auto) (0-100) /uL D-Dimer (<500) ng/ml Sodium (137-145) mmol/L Potassium (3.4-5.1) mmol/L Chloride (98-107) mmol/L Carbon Dioxide (22-32) mmol/L BUN (9-20) mg/dL Creatinine (0.66-1.25) mg/dL Estimated GFR (>60) mL/min BUN/Creatinine Ratio (6-22) Glucose (80-110) mg/dL Calcium (8.4-10.2) mg/dL Magnesium (1.6-2.3) mg/dL Total Bilirubin (0.2-1.3) mg/dL AST (17-59) IU/L ALT (<50) IU/L Alkaline Phosphatase (38-126) U/L Total Creatine Kinase (55-170) U/L CK-MB (CK-2) (<2.37) ng/mL CK-MB (CK-2) Rel Index (1.5-5.0) % Troponin I (0.01-0.034) ng/mL Total Protein (6.3-8.2) g/dL Albumin (3.5-5.0) g/dL Globulin (1.7-4.1) g/dL Albumin/Globulin Ratio (1.0-2.8) Lipase (23-300) U/L TSH (0.47-4.68) uIU/mL Urine RBC 0-1/hpf (0-5/HPF) Urine WBC None seen (0-5/HPF) Ur Squamous Epith Cells 0-1 /hpf (0-5/HPF) Urine Bacteria Few (2-10) H (None) Urine Mucus 1+ H (Negative) Ethyl Alcohol ( - 10) mg/dL SARS-CoV-2 (PCR) (Negative) Influenza A (RT-PCR) (NEGATIVE) Influenza B (RT-PCR) (NEGATIVE) RSV (PCR) (Negative) Urine Dip Bedside Urine Glucose Negative Bedside Urine Bilirubin - Negative Bedside Urine Ketone +/- 5 Urine Specific [place] 1.025 Bedside Urine Occult Blood - Negative Bedside Urine pH 6.0 Bedside Urine Protein - Negative Bedside Urine Urobilinogen - Negative Bedside Urine Nitrite - Negative Bedside Urine Leukocytes - Negative Esterase MDM Narrative Medical decision making narrative: Appropriate for discharge home. At time of discharge patient much more relaxed and has had reviewed with social workMartha, treatment plan for follow up with primary care in 2 days as scheduled and will need supplemental anxiety medication instead of lorazepam. Patient is comfortable with this plan. Return precautions reviewed with him. Not toxic at discharge. No SI or HI. No hallucinations. No agitation. Discharge Plan Departure Patient Disposition: Home Clinical Impression: Generalized anxiety disorder Instructions: DI for Anxiety -- Adult Activity Restrictions/Additional Instructions: No driving or operating machinery today or when taking prescribed anxiety medication. Short course of lorazepam has been provided for you until you see your doctor in 2 days. Be sure to review with your family doctor alternative medication for your anxiety in place of lorazepam. Return if worse if any questions or concerns. Prescriptions: No Action sildenafil 100 mg tablet 100 mg PO DAILY PRN (Reason: erectile dysfunction) Qty: 30 5RF rosuvastatin 10 mg tablet 10 mg PO DAILY Qty: 90 3RF mirtazapine 15 mg tablet 30 mg PO BEDTIME Qty: 60 2RF Referrals: Luca Rock MD [Primary Care Provider] - Visit Report Forms: Patient Portal/API
[2022-05-23] VITALS (25 sets, daily range): BP systolic 103–182; BP diastolic 55–88; PULSE 80–107; RESP 18–95; O2SAT 91–98
[2022-05-23] MEDS: LORazepam 2 MG/ML INJ 0.5 MG IV (00:07)
[2022-05-23 00:18] LABS: Add Manual Diff / Slide Review NO; Basophils Absolute Auto 100 /uL (0-100); Basophils Percent Auto 0.9 % (0-2); Eosinophils Absolute Auto 100 /uL (0-450); Eosinophils Percent Auto 1.1 % (2-4); Hematocrit 40.7 % (41-53); Hemoglobin 13.9 g/dL (13.5-17.5); Lymphocytes Absolute Auto 2100 /uL (1100-4500); Lymphocytes Percent Auto 26.2 % (25-40); Mean Corpuscular HGB Conc 34.1 % (30-36); Mean Corpuscular Volume 93.9 fL (80-100); Monocytes Absolute Auto 700 /uL (0-900); Monocytes Percent Auto 8.1 % (3-14); Neutrophils Absolute Auto 5100 /uL (1500-7000); Neutrophils Percent Auto 63.7 % (50-75); Platelet Count 391 X10^3/uL (150-400); Red Blood Cell Count 4.34 X10^6/uL (4.5-5.9); Red Cell Distribution Width 12.7 % (11.6-14.8); White Blood Cell Count 8.1 X10^3/uL (4.5-11.0)
[2022-05-23 00:33] LABS: D Dimer < 215 ng/ml (<500)
[2022-05-23 00:34] LABS: Alanine Aminotransferase 33 IU/L (<50); Albumin 3.9 g/dL (3.5-5.0); Albumin Globulin Ratio 1.3 (1.0-2.8); Alkaline Phosphatase 76 U/L (38-126); Aspartate Aminotransferase 33 IU/L (17-59); BUN Creatinine Ratio 25.6 (6-22); Bilirubin Total 0.6 mg/dL (0.2-1.3); Blood Urea Nitrogen 20 mg/dL (9-20); Calcium 8.7 mg/dL (8.4-10.2); Carbon Dioxide 20 mmol/L (22-32); Chloride 104 mmol/L (98-107); Creatine Kinase 389 U/L (55-170); Estimated Glomerular Filt Rate > 60 mL/min (>60); Globulin 2.9 g/dL (1.7-4.1); Glucose 95 mg/dL (80-110); HEMOLYSIS < 15 (0-50); Lipase 126 U/L (23-300); Magnesium 2.1 mg/dL (1.6-2.3); Potassium 3.1 mmol/L (3.4-5.1); Sodium 137 mmol/L (137-145); Total Protein 6.8 g/dL (6.3-8.2)
[2022-05-23 00:44] LABS: Troponin I < 0.012 ng/mL (0.01-0.034)
[2022-05-23 00:49] LABS: CKMB % Relative Index 1.4 % (1.5-5.0); Creatine Kinase MB 5.48 ng/mL (<2.37)
[2022-05-23 00:51] LABS: Bacteria Urine Few (2-10); Mucus Urine 1+ (Negative); RBC Urine 0-1/HPF (0-5/HPF); Squamous Epithelial Cell Urine 0-1 /HPF (0-5/HPF); WBC Urine None Seen (0-5/HPF)
[2022-05-23 00:53] LABS: Ethanol (ETOH) < 10 mg/dL
[2022-05-23 01:03] LABS: TSH w/ Reflex to FT4 1.66 uIU/mL (0.47-4.68)
[2022-05-23 01:08] LABS: Influenza A - CEPHEID Flu A NEGATIVE (NEGATIVE); Influenza B - CEPHEID Flu B NEGATIVE (NEGATIVE); Respiratory Syncytial Virus Negative (Negative)
[2022-05-23 01:09] LABS: COVID-19 CEPHEID 4-PLEX PCR Negative (Negative)
[2022-05-23] MEDS: POTASSIUM CHLORIDE 20 MEQ/15 ML UDC 40 MEQ PO (06:26)
[2022-05-23] MEDS: LORazepam 2 MG/ML INJ 1 MG IV ×2 (06:26→13:36)
--- NOTE | 2022-05-23 13:30 | CM.SWNOTE ---
Addendum entered by ELBERT Nicholson 05/24/22 13:40: Pt returned to the ED today, 05/24/22 following a similar episode of panic this morning around 8:30am. Pt's reports pt thrashing, uncontrolled movements, inability to articulate what was happening. Pt received ativan in ED and is now calm and cooperative. Pt able to engage in interview and reports feeling shame and regret for sins he has committed in his life. Pt's assures him that he is forgiven. Pt agrees with voluntary hospitalization and understands the process to get accepted will involve a phone screen. YANDEL called [facility] to check bed availability and [facility] and [facility] both have available beds. YANDEL will send fax to these facilities once patient is medically clear. ELBERT Nicholson Addendum entered by ELBERT Nicholson 05/23/22 14:10: Pt received 1mg ativan PRN for anxiety. SW met pt in room and he was able to participate in interview. Pt presented as calm and cooperative and able to answer questions. Pt denies SI or HI. Pt reports that he does not want to pursue inpatient hospitalization at this time. Pt reports that he has an appointment with his PCP, Dr. Rock on 05/25. YANDEL instructed pt to discuss usp solution to underlying panic/anxiety disorder, such as an SSRI. YANDEL explained that benzos like ativan are not a good termite inspector solution and that an SSRI or something similar would be a better maintenance drug. Pt agreeable to discussing with PCP on . Pt's spouse is reaching out to pharmacy to check on refills for pt's PRN ativan and sleep medication. YANDEL discussed with Dr. Bonilla, who is agreeable to pt discharging home with a plan to follow up with PCP on . YANDEL called [facility] and rescinded referral. ELBERT Nicholson Original Note: BULK DRIVER - Curriculum Development Coordinator Assessment BULK DRIVER - Curriculum Development Coordinator Assessment Start: 05/23/22 13:12 Freq: Status: Active Protocol: Document 05/23/22 13:12 TM (Rec: 05/23/22 13:30 TM [id number]) BULK DRIVER/Curriculum Development Coordinator Assessment Time Spent with Patient Start date 05/23/22 Visit Start Time 12:45 End date 05/23/22 Visit End Time 13:15 Mental Health Screening Include Onset, Duration, Intensity Presenting Problem Pt presents with severe anxiety and panic attack. Pt appears gravely disabled. Precipitating Event(s) Pt's reports that patient 's panick attacks have been escalating for the last few weeks. Triggers include stress at work, daughter's divorce and fear of legal fees, and a mother in law that was gravely ill and staying with pt. Current Behavioral Health Provider(s) pt's PCP Dr. Luca Rock Include Facility, Provider, Ph. # prescribes lorazepam .5mg twice daily/PRN. Pt also prescribed mirtazapine for sleep, 15mg nightly. Psych. Hx Mental Health and Chemical Pt has suffered panic attacks Dependency since 1996. The last panic attack that was this disabling was at the start of Habboid in 2019. No history of substance use/ chemical dependency. Family Hx of Behavioral Abuse Pt's mother suffered anxiety, possible bipolar disorder. Psychiatric Hospitalizations (date(s)/ None. location) Psychosocial information & Support Pt has supportive spouse and Systems sisters. 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 Legal Concerns Legal Matters - Outstanding Issues None. Mental Status Orientation (Person/Place/Time) Pt unable to answer orientation questions. A&Ox1 Stated Mood Pt unable to answer question. Pt's body is restless and moving around and pt has labored breathing. Pt able to follow with eyes. Affect (Congruent with Mood?) Broad. Thought Content - Specify/Describe Pt unable to answer. unable to Obsessions, Delusions, Hallucinations assess. Thought Processes (Pbrmdxc-Jbkibgzi-Cxfz Unable to answer. unable to Bywfdpto-Cubdsjli-Wneyajmekg- assess. Ohmzaccfmitonp-Fivffeo-Tpfsayrcptaj- Thought Blocking) Speech (Gcvgah-Lxsc-Xrkzktx-Rapid-Soft- Pt currently non verbal. Loud-Pressured) Motor (Kzcekc-Bacrexlsm-Nqlg-Other) excessive - pt's limbs constantly moving and labored breathing. Insight (Xzqi-Qohq-Xqsj/Limited) unable to assess. Judgement (Tyvt-Alrz-Ouuw/Limited) unable to assess. Impulse Control (Adequate-Impaired) unable to assess. Memory (Jrohsvqgi-Ixnjqw-Vhsesn, unable to assess. Impaired-Intact) Concentration (Intact-Impaired) impaired. Attention (Intact-Impaired) impaired. Behavior (Appropriate-Inappropriate) Pt unable to remain attentive; labored breathing, psychomotor agitation, able to hold eye contact, unable to respond to verbal questions, constant body movement. Risk Assessment Suicidal Ideation (Plan) No: unable to assess; pt was previously asked by MD hours ago and he denied. Homicidal Ideation (Plan) No: unable to assess; pt was previously asked by MD hours ago and he denied. Intervention Intervention SW met pt and his spouse and sisters at bedside to complete MH evaluation. Pt was unable to meaningfully participate in interview due to anxiety symptoms. Pt's reports that pt has not been sleeping at night and that his body is constantly moving. Pt's reports that pt's appetite is unchanged but he has not been drinking as much water as usual. SW attempted to interview pt but he was unable to answer questions. Per spouse, pt's anxiety is generally worse in the morning and the evening. Pt appeared distressed during interview, breathing heavy and constantly moving limbs. Pt able to maintain eye contact but not answer SW questions. Plan RA Plan At this time, pt can not be considered good stephanie voluntary due to inability to participate in interview. YANDEL discussed with ED provider who agrees that [facility] should be called to evaluate. ELBERT Nicholson
== END 2022-05-23 15:59 | disposition home or self-care (01) ==
PROVIDERS: Emergency Medicine; Emergency Provider Emergency Medicine; PCP Internal Medicine
DX: F41.1 Generalized anxiety disorder (principal); Z20.822 Contact with and (suspected) exposure to COVID-19
CPT/HCPCS: 0241U; 36415; 80053; 80320; 81003; 81015; 82550; 82553; 83690; 83735; 84443; 84484; 85025; 85379; 87086; 93005; 96374; 96376; 99284; J2060

== ENCOUNTER 2022-05-24 09:46 | Emergency (ER) | payer OTHER, SELFPAY ==
[2022-05-24] VITALS (26 sets, daily range): BP systolic 102–173; BP diastolic 57–91; PULSE 81–115; RESP 21–25; TEMP 36.5; O2SAT 93–99
--- NOTE | 2022-05-24 10:24 | DI.RAD.S_ITS ---
PROCEDURE: XR CHEST 1V INDICATIONS: chest pain TECHNIQUE: One view of the chest was acquired. COMPARISON: [facility], CR, XR CHEST 1V, 04/28/2022, 10:51. FINDINGS: Surgical changes and devices: None. Lungs and pleura: Lungs are clear. No pleural effusions or pneumothorax. Mediastinum: Mediastinal contours appear normal. Heart size is normal. Bones and chest wall: No suspicious bony lesions. Overlying soft tissues appear unremarkable. IMPRESSION: No acute cardiopulmonary findings. Dictated by: Martha Leonard M.D. on 05/24/2022 at 11:26 Approved by: Martha Leonard M.D. on 05/24/2022 at 11:26
[2022-05-24 10:29] LABS: Add Manual Diff / Slide Review NO; Basophils Absolute Auto 0 /uL (0-100); Basophils Percent Auto 0.7 % (0-2); Eosinophils Absolute Auto 0 /uL (0-450); Eosinophils Percent Auto 0.5 % (2-4); Hematocrit 44.8 % (41-53); Hemoglobin 15.6 g/dL (13.5-17.5); Lymphocytes Absolute Auto 1400 /uL (1100-4500); Lymphocytes Percent Auto 21.9 % (25-40); Mean Corpuscular HGB Conc 34.7 % (30-36); Mean Corpuscular Hemoglobin 32.1 PG (26-34); Mean Corpuscular Volume 92.5 fL (80-100); Monocytes Absolute Auto 400 /uL (0-900); Monocytes Percent Auto 6.9 % (3-14); Neutrophils Absolute Auto 4400 /uL (1500-7000); Platelet Count 407 X10^3/uL (150-400); Red Blood Cell Count 4.84 X10^6/uL (4.5-5.9); Red Cell Distribution Width 12.7 % (11.6-14.8); White Blood Cell Count 6.2 X10^3/uL (4.5-11.0)
[2022-05-24 10:31] LABS: INR 1.1 (0.9-1.3)
[2022-05-24 10:33] LABS: PTT Partial Thromboplastin Tim 30 SECONDS (26-36)
[2022-05-24 10:37] LABS: Alanine Aminotransferase 31 IU/L (<50); Albumin 4.3 g/dL (3.5-5.0); Albumin Globulin Ratio 1.3 (1.0-2.8); Alkaline Phosphatase 83 U/L (38-126); Aspartate Aminotransferase 28 IU/L (17-59); BUN Creatinine Ratio 19.7 (6-22); Bilirubin Total 0.8 mg/dL (0.2-1.3); Blood Urea Nitrogen 14 mg/dL (9-20); Calcium 9.5 mg/dL (8.4-10.2); Carbon Dioxide 17 mmol/L (22-32); Chloride 105 mmol/L (98-107); Creatine Kinase 181 U/L (55-170); Estimated Glomerular Filt Rate > 60 mL/min (>60); Globulin 3.2 g/dL (1.7-4.1); Glucose 98 mg/dL (80-110); HEMOLYSIS < 15 (0-50); Lipase 124 U/L (23-300); Potassium 3.6 mmol/L (3.4-5.1); Sodium 135 mmol/L (137-145); Total Protein 7.5 g/dL (6.3-8.2)
--- NOTE | 2022-05-24 11:01 | PC.NURSE ---
Family came to the nurses station to report they have a video of the patient saying my life is over. I informed patient that the doctor would be in to the room shortly to speak with them in private. Family then stood outside the patient's room. I asked if I could assist them and she said the family member in the room asked her to step outside the room. I ask the lady to either step back into the room or to wait in the lobby. The woman was standing right next to nurses station and in ear shot of protected patient information conversations between nurses. Primary RN advised.
[2022-05-24 11:11] LABS: CKMB % Relative Index 1.2 % (1.5-5.0); Creatine Kinase MB 2.22 ng/mL (<2.37); Troponin I < 0.012 ng/mL (0.01-0.034)
--- NOTE | 2022-05-24 11:12 | ED.ANXIETY ---
HPI - Anxiety General Chief Complaint: Anxiety Stated Complaint: Panic attack Time Seen by Provider: 05/24/22 10:13 Source: patient and EMS Mode of arrival: EMS History of Present Illness HPI narrative: Patient is a 67-year-old male history of severe anxiety, hyperlipidemia, presenting today with anxiety and panic attack. He was seen and evaluated yesterday he spent numerous hours in the emergency department was evaluated by social work. He currently is unable to provide much history I have reviewed the chart, yesterday after Ativan he was not suicidal or homicidal. He was discharged home with 1 tablet of lorazepam. He says he did take pill last night before bed and another 1 this morning. However his anxiety has gotten worse. The only thing he is able to get out is that he feels like he is failed his family. He has 2 very supportive family members at bedside. I attempted interviewing patient without them but he really is not able to communicate due to severe panic. Related Data Previous Rx's Medication Instructions Recorded sildenafil 100 mg tablet 100 mg PO DAILY PRN erectile 02/23/22 dysfunction #30 tabs lorazepam 0.5 mg tablet 0.5 mg PO BID PRN anxiety #20 tabs 05/03/22 mirtazapine 15 mg tablet 15 mg PO BEDTIME #30 tabs 05/03/22 rosuvastatin 10 mg tablet 10 mg PO DAILY #90 tabs 05/08/22 lorazepam 1 mg tablet 1 mg PO TID PRN anxiety #6 tabs 05/23/22 lorazepam 1 mg tablet (Ativan) 1 mg PO Q6HR PRN anxiety #2 tabs 05/24/22 olanzapine 5 mg tablet 5 mg PO BEDTIME #10 tabs 05/24/22 Allergies Allergy/AdvReac Type Severity Reaction Status Date / Time Penicillins Allergy Mild Rash Verified 05/24/22 09:43 Review of Systems Review of Systems ROS Unobtainable: Unobtainable due to mental condition Patient History Medical History Actinic keratoses Chicken pox (~1959) Erectile dysfunction Family history of colon cancer Generalized anxiety disorder Mixed hyperlipidemia Synovial cyst of popliteal space [[place]], right knee Viral URI with cough Surgical History Anesthesia History of hand surgery (~1964) Family History Father Hyperlipidemia Mother Mental health problem Anxiety Brother Hyperlipidemia Sister Hyperlipidemia Alzheimer's disease Social History (System 05/24/22 @ 09:43 by Ileana Castro) details: (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 Normoactive bowel sounds all 4 quadrants. No guarding or rebound. EXTREMITIES: Normal range of motion, no clubbing or edema. Neurovascularly intact NEUROLOGICAL: Alert and oriented x4. Moving all extremities SKIN: Warm, dry, no laceration, no petechiae, no rashes or lesions. Course Orders Ordered: ED Orders 05/24/22 11:26 Consult to AUTOMATIC LUMP MAKING MACHINE TENDER - Electroneurodiagnostic Technologist Stat 05/24/22 11:28 EKG-12 Lead Stat 05/24/22 12:48 CT head/brain wo con Stat 05/24/22 13:30 Urine Drug Screen, Rapid Stat Urine Microscopic Stat Discontinued Medications Aspirin (Aspirin 81 Mg Chew Tab) 324 mg PO NOW ONE Stop: 05/24/22 10:24 Last Admin: 05/24/22 10:37 Dose: Not Given Documented By: MENA Lorazepam (Lorazepam 2 Mg/Ml Inj) 2 mg IV NOW ONE Stop: 05/24/22 11:24 Last Admin: 05/24/22 11:41 Dose: 2 mg Documented By: DIEGO Lorazepam (Lorazepam 2 Mg/Ml Inj) 1 mg IV NOW ONE Stop: 05/24/22 15:23 Last Admin: 05/24/22 16:20 Dose: 1 mg Documented By: RB Vital Signs Vital signs: Vital Signs - 8 hr 05/24/22 12:13 05/24/22 12:30 05/24/22 13:02 Pulse Rate 92 H 89 81 Respiratory Rate 25 H Blood Pressure Pulse Oximetry 93 95 Oxygen Delivery Method Room Air Room Air 05/24/22 13:04 05/24/22 13:04 05/24/22 13:30 Pulse Rate 82 Respiratory Rate Blood Pressure 102/57 L 138/63 Pulse Oximetry 97 Oxygen Delivery Method 05/24/22 13:30 05/24/22 13:45 05/24/22 13:45 Pulse Rate 84 82 Respiratory Rate 24 23 Blood Pressure 119/59 L Pulse Oximetry 96 95 Oxygen Delivery Method 05/24/22 14:00 05/24/22 14:00 05/24/22 14:15 Pulse Rate 85 Respiratory Rate 24 Blood Pressure 129/64 130/63 Pulse Oximetry 96 Oxygen Delivery Method 05/24/22 14:15 05/24/22 14:30 05/24/22 14:30 Pulse Rate 81 85 Respiratory Rate 24 25 H Blood Pressure 127/62 Pulse Oximetry 96 97 Oxygen Delivery Method 05/24/22 14:45 05/24/22 14:45 05/24/22 15:00 Pulse Rate 81 Respiratory Rate 21 Blood Pressure 122/61 136/69 Pulse Oximetry 96 Oxygen Delivery Method 05/24/22 15:00 05/24/22 15:15 05/24/22 15:15 Pulse Rate 89 92 H Respiratory Rate 21 Blood Pressure 126/68 Pulse Oximetry 98 99 Oxygen Delivery Method 05/24/22 15:30 05/24/22 15:30 05/24/22 15:45 Pulse Rate 96 H Respiratory Rate Blood Pressure 133/76 133/74 Pulse Oximetry 98 Oxygen Delivery Method 05/24/22 15:45 05/24/22 16:00 05/24/22 16:00 Pulse Rate 95 H 92 H Respiratory Rate 24 22 Blood Pressure 136/70 Pulse Oximetry 97 96 Oxygen Delivery Method 05/24/22 16:15 05/24/22 16:15 05/24/22 16:30 Pulse Rate 90 Respiratory Rate 24 Blood Pressure 129/66 127/68 Pulse Oximetry 98 Oxygen Delivery Method 05/24/22 16:30 05/24/22 16:40 05/24/22 16:40 Pulse Rate 89 87 Respiratory Rate Blood Pressure 119/62 Pulse Oximetry 96 96 Oxygen Delivery Method 05/24/22 16:45 05/24/22 16:45 Pulse Rate 89 Respiratory Rate Blood Pressure 124/64 Pulse Oximetry 96 Oxygen Delivery Method [facility] - Anxiety Lab Data Result diagrams: 05/24/22 10:12 05/24/22 10:12 Labs: Lab Results 05/24/22 05/24/22 05/24/22 Range/Units 10:12 10:12 10:12 WBC 6.2 (4.5-11.0) X10^3/uL RBC 4.84 (4.5-5.9) X10^6/uL Hgb 15.6 (13.5-17.5) g/dL Hct 44.8 (41-53) % MCV 92.5 (80-100) fL MCH 32.1 (26-34) PG MCHC 34.7 (30-36) % RDW 12.7 (11.6-14.8) % Plt Count 407 H (150-400) X10^3/uL Neut % (Auto) 70.0 (50-75) % Lymph % (Auto) 21.9 L (25-40) % [place] % (Auto) 6.9 (3-14) % Eos % (Auto) 0.5 L (2-4) % Baso % (Auto) 0.7 (0-2) % Neut # (Auto) 4400 (4533-6995) /uL Lymph # (Auto) 1400 (1166-1007) /uL [place] # (Auto) 400 (0-900) /uL Eos # (Auto) 0 (0-450) /uL Baso # (Auto) 0 (0-100) /uL PT 13.0 H (10.1-12.7) SECONDS INR 1.1 (0.9-1.3) APTT 30 (26-36) SECONDS Sodium 135 L (137-145) mmol/L Potassium 3.6 (3.4-5.1) mmol/L Chloride 105 (98-107) mmol/L Carbon Dioxide 17 L (22-32) mmol/L BUN 14 (9-20) mg/dL Creatinine 0.71 (0.66-1.25) mg/dL Estimated GFR > 60 (>60) mL/min BUN/Creatinine Ratio 19.7 (6-22) Glucose 98 (80-110) mg/dL Calcium 9.5 (8.4-10.2) mg/dL Magnesium 2.0 (1.6-2.3) mg/dL Total Bilirubin 0.8 (0.2-1.3) mg/dL AST 28 (17-59) IU/L ALT 31 (<50) IU/L Alkaline Phosphatase 83 (38-126) U/L Total Creatine Kinase 181 H D (55-170) U/L CK-MB (CK-2) 2.22 (<2.37) ng/mL CK-MB (CK-2) Rel Index 1.2 L (1.5-5.0) % Troponin I < 0.012 (0.01-0.034) ng/mL Total Protein 7.5 (6.3-8.2) g/dL Albumin 4.3 (3.5-5.0) g/dL Globulin 3.2 (1.7-4.1) g/dL Albumin/Globulin Ratio 1.3 (1.0-2.8) Lipase 124 (23-300) U/L Urine RBC (0-5/HPF) Urine WBC (0-5/HPF) Ur Squamous Epith Cells (0-5/HPF) Urine Bacteria (None) Ur Culture Indicated? U Opiates 300ng/mL cut (Negative) Ur Oxycodone Screen (Negative) Urine Methadone Screen (Negative) Ur Barbiturates Screen (Negative) U Tricyclic Antidepress (Negative) Ur Phencyclidine Scrn (Negative) Ur Amphetamines Screen (Negative) U Methamphetamines Scrn (Negative) Ur MDMA Scrn (Ecstasy) (Negative) U Benzodiazepines Scrn (Negative) Urine Cocaine Screen (Negative) U Marijuana (THC) Screen (Negative) Ethyl Alcohol ( - 10) mg/dL 05/24/22 05/24/22 05/24/22 Range/Units 10:12 13:30 13:30 WBC (4.5-11.0) X10^3/uL RBC (4.5-5.9) X10^6/uL Hgb (13.5-17.5) g/dL Hct (41-53) % MCV (80-100) fL MCH (26-34) PG MCHC (30-36) % RDW (11.6-14.8) % Plt Count (150-400) X10^3/uL Neut % (Auto) (50-75) % Lymph % (Auto) (25-40) % [place] % (Auto) (3-14) % Eos % (Auto) (2-4) % Baso % (Auto) (0-2) % Neut # (Auto) (2119-3450) /uL Lymph # (Auto) (2011-9440) /uL [place] # (Auto) (0-900) /uL Eos # (Auto) (0-450) /uL Baso # (Auto) (0-100) /uL PT (10.1-12.7) SECONDS INR (0.9-1.3) APTT (26-36) SECONDS Sodium (137-145) mmol/L Potassium (3.4-5.1) mmol/L Chloride (98-107) mmol/L Carbon Dioxide (22-32) mmol/L BUN (9-20) mg/dL Creatinine (0.66-1.25) mg/dL Estimated GFR (>60) mL/min BUN/Creatinine Ratio (6-22) Glucose (80-110) mg/dL Calcium (8.4-10.2) mg/dL Magnesium (1.6-2.3) mg/dL Total Bilirubin (0.2-1.3) mg/dL AST (17-59) IU/L ALT (<50) IU/L Alkaline Phosphatase (38-126) U/L Total Creatine Kinase (55-170) U/L CK-MB (CK-2) (<2.37) ng/mL CK-MB (CK-2) Rel Index (1.5-5.0) % Troponin I (0.01-0.034) ng/mL Total Protein (6.3-8.2) g/dL Albumin (3.5-5.0) g/dL Globulin (1.7-4.1) g/dL Albumin/Globulin Ratio (1.0-2.8) Lipase (23-300) U/L Urine RBC None seen (0-5/HPF) Urine WBC 0-1/hpf (0-5/HPF) Ur Squamous Epith Cells None seen (0-5/HPF) Urine Bacteria None seen (None) Ur Culture Indicated? Cult not indicated U Opiates 300ng/mL cut Negative (Negative) Ur Oxycodone Screen Negative (Negative) Urine Methadone Screen Negative (Negative) Ur Barbiturates Screen Negative (Negative) U Tricyclic Antidepress Negative (Negative) Ur Phencyclidine Scrn Negative (Negative) Ur Amphetamines Screen Negative (Negative) U Methamphetamines Scrn Negative (Negative) Ur MDMA Scrn (Ecstasy) Negative (Negative) U Benzodiazepines Scrn Positive H (Negative) Urine Cocaine Screen Negative (Negative) U Marijuana (THC) Screen Negative (Negative) Ethyl Alcohol < 10 ( - 10) mg/dL Urine Dip Bedside Urine Glucose Negative Bedside Urine Bilirubin - Negative Bedside Urine Ketone + 15 Urine Specific [facility] 1.020 Bedside Urine Occult Blood - Negative Bedside Urine pH 6.0 Bedside Urine Protein - Negative Bedside Urine Urobilinogen 0.2 Bedside Urine Nitrite - Negative Bedside Urine Leukocytes - Negative Esterase Imaging Data CT scan - head: Radiologist's Impression: Signed Patient: Floyd Burciaga MR#: [id number] : 1955 Acct:[id number] Age/Sex: 67 / M Date of Service: 05/24/22 Loc: ED Accession Number: [id number] ?? Procedure: CT head/brain wo con Ordering Provider: Barbie Young D.O. PROCEDURE:? CT HEAD/BRAIN WO CON ? INDICATIONS:? posible new seizure ? TECHNIQUE:? Noncontrast 4.5 mm thick angled axial sections acquired from the foramen magnum to the vertex, with coronal and sagittal reformats.? For radiation dose reduction, the following was used:? automated exposure control, adjustment of mA and/or kV according to patient size.? ? COMPARISON:? None. ? FINDINGS:? Image quality:? Excellent.? ? CSF spaces:? Basal cisterns are patent.? No extra-axial fluid collections.? Ventricles are normal in size and shape.? ? Brain:? No midline shift.? No intracranial masses or hemorrhage.? Cloud-white matter interface is normal.? ? Skull and face:? Calvarium and visualized facial bones are intact, without suspicious lesions.? ? Sinuses:? Visualized sinuses and mastoids are clear.? ? IMPRESSION:? No acute intracranial findings. ? ? Dictated by: Martha Leonard M.D. on 05/24/2022 at 13:37 ? ? Chest x-ray: Radiologist's Impression: [facility] [place] [id number] XRay Report Signed Patient: Floyd Burciaga MR#: [id number] : 1955 Acct:[id number] Age/Sex: 67 / M Date of Service: 05/24/22 Loc: ED Accession Number: [id number] ?? Procedure: XR chest 1V Ordering Provider: Barbie Young D.O. PROCEDURE:? XR CHEST 1V ? INDICATIONS:? chest pain ? TECHNIQUE:? One view of the chest was acquired.? ? COMPARISON:? [facility], CR, XR CHEST 1V, 04/28/2022, 10:51. ? FINDINGS:? ? Surgical changes and devices:? None.? ? Lungs and pleura:? Lungs are clear.? No pleural effusions or pneumothorax.? ? Mediastinum:? Mediastinal contours appear normal.? Heart size is normal.? ? Bones and chest wall:? No suspicious bony lesions.? Overlying soft tissues appear unremarkable.? ? IMPRESSION:? No acute cardiopulmonary findings. ? ? Dictated by: Martha Leonard M.D. on 05/24/2022 at 11:26? ECG Data Interpretation: Normal sinus rhythm rate 101 W[place] interval 126 QRS 72 QTC 453 Q-waves noted in lead 3 similar to previous EKG no ST changes actually looks mildly improved from 2 days ago. MDM Narrative Medical decision making narrative: Patient presents with severe anxiety unable to verbalize. He is given 2 mg of Ativan and is able to verbalize a bit more. Denies any suicidal or homicidal ideations. He does not report crippling or disabling anxiety although he presents with it. Not able to communicate or participate in care until after he would 2 mg of Ativan. reports that he may have been shaking and stared off into space at some point in time. Concern for possible seizure. Head CT was done for this reason head CT is negative. Social work has been in to evaluate patient. PCP Dr. Rock has been involved in case today as well I have spoken with him. He recommends adding olanzapine. He is an appointment with Dr. Rock tomorrow. At this time after social work evaluation he does not meet criteria for even voluntary placement and mental health facility. This is discussed with family. He is given couple more Ativan tablets and olanzapine to see if it will help him get through the night to visit his primary care provider tomorrow. At this time blood work and further workup in the ED is otherwise reassuring. Social work has given patient and family multiple resources that they can use as an outpatient Discharge Plan Departure Patient Disposition: Home Clinical Impression: Acute anxiety Instructions: DI for Anxiety -- Adult Activity Restrictions/Additional Instructions: *You have been diagnosed with anxiety *What to do: Please see social work notes and recommendations. Also please follow-up with your PCP tomorrow *Continue to take medications as directed Ativan 1 mg every 6 hours if needed for anxiety Olanzapine 5-10 mg at nighttime *Follow up with your primary care provider in 2-3 days or call [phone] *Return to ER if you should have thoughts of suicide increased anxiety or any new, worsening or concerning symptoms Prescriptions: New olanzapine 5 mg tablet 5 mg PO BEDTIME Qty: 10 0RF lorazepam [Ativan] 1 mg tablet 1 mg PO Q6HR PRN (Reason: anxiety) Qty: 2 0RF No Action sildenafil 100 mg tablet 100 mg PO DAILY PRN (Reason: erectile dysfunction) Qty: 30 5RF rosuvastatin 10 mg tablet 10 mg PO DAILY Qty: 90 3RF mirtazapine 15 mg tablet 15 mg PO BEDTIME Qty: 30 2RF lorazepam 0.5 mg tablet 0.5 mg PO BID PRN (Reason: anxiety) Qty: 20 1RF lorazepam 1 mg tablet 1 mg PO TID PRN (Reason: anxiety) Qty: 6 0RF Referrals: Luca Rock MD [Primary Care Provider] - Stand Alone Forms: Patient Portal/API
[2022-05-24] MEDS: LORazepam 2 MG/ML INJ IV (11:41)
--- NOTE | 2022-05-24 12:48 | DI.CT.S_ITS ---
PROCEDURE: CT HEAD/BRAIN WO CON INDICATIONS: posible new seizure TECHNIQUE: Noncontrast 4.5 mm thick angled axial sections acquired from the foramen magnum to the vertex, with coronal and sagittal reformats. For radiation dose reduction, the following was used: automated exposure control, adjustment of mA and/or kV according to patient size. COMPARISON: None. FINDINGS: Image quality: Excellent. CSF spaces: Basal cisterns are patent. No extra-axial fluid collections. Ventricles are normal in size and shape. Brain: No midline shift. No intracranial masses or hemorrhage. Cloud-white matter interface is normal. Skull and face: Calvarium and visualized facial bones are intact, without suspicious lesions. Sinuses: Visualized sinuses and mastoids are clear. IMPRESSION: No acute intracranial findings. Dictated by: Martha Leonard M.D. on 05/24/2022 at 13:37 Approved by: Martha Leonard M.D. on 05/24/2022 at 13:38
[2022-05-24 13:07] LABS: Ethanol (ETOH) < 10 mg/dL
[2022-05-24 14:01] LABS: Bacteria Urine None Seen; Culture Indicated Urine Cult Not Indicated; RBC Urine None Seen (0-5/HPF); Squamous Epithelial Cell Urine None Seen (0-5/HPF); WBC Urine 0-1/HPF (0-5/HPF)
[2022-05-24 14:02] LABS: UR Morphine/Opiate cutoff 300 Negative (Negative); Ur Creatinine Normal (Normal); Ur Specific Gravity Normal (Normal); Urine Amphetamines Negative (Negative); Urine Barbiturates Negative (Negative); Urine Benzodiazepines Positive (Negative); Urine Cocaine Negative (Negative); Urine MDMA Negative (Negative); Urine Methadone Negative (Negative); Urine Methamphetamines Negative (Negative); Urine Oxycodone Negative (Negative); Urine Phencyclidine Negative (Negative); Urine Tetrahydrocannabinol Negative (Negative); Urine Tricyclic Antidepressant Negative (Negative); Urine pH Normal (Normal)
--- NOTE | 2022-05-24 15:30 | CM.SWNOTE ---
ED SW Note Pt returned to the ED today, 05/24/22 following a similar episode of panic this morning around 8:30am. Pt's reports pt thrashing, uncontrolled movements, inability to articulate what was happening. Pt received ativan in ED and is now calm and cooperative. Pt able to engage in interview and reports feeling shame and regret for sins he has committed in his life. Pt's assures him that he is forgiven. Pt agrees with voluntary hospitalization and understands the process to get accepted will involve a phone screen. YANDEL called [facility] to check bed availability and [facility] and [facility] both have available beds. YANDEL will send fax to these facilities once patient is medically clear. UPDATE: Pt medically clear and SW faxed referrals to [facility] and [facility]. SW [facility] reporting that pt does not meet criteria for inpatient psychiatric hospitalization due to a lack of SI or HI and the fact that pt is no longer gravely disabled. Mark at [facility] reported that pt would meet criteria for IOP program. Mark reported that pt would automatically be referred to IOP and the director will reach out directly to pt to schedule. YANDEL discussed with provider, who also discussed case with pt's PCP. PCP made recommendation for medication change and pt has a follow up appointment tomorrow. YANDEL met pt and his in room to discuss. YANDEL advised pt that he is not meeting criteria at this time because he is no longer in crisis and gravely disabled. 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 YANDEL provided information on appropriate questions to ask when calling behavioral health providers, such as [facility] in [facility], which was suggested by pt's daughter. Plan: Pt will discharge home with outpatient resources and plan to follow up with PCP tomorrow, 05/25. ELBERT Nicholson
[2022-05-24] MEDS: LORazepam 2 MG/ML INJ 1 MG IV (16:20)
== END 2022-05-24 16:55 | disposition home or self-care (01) ==
PROVIDERS: Emergency Provider Emergency Medicine; PCP Internal Medicine
DX: F41.9 Anxiety disorder, unspecified (principal); R07.9 Chest pain, unspecified
CPT/HCPCS: 36415; 70450; 71045; 80053; 80305; 80320; 81003; 81015; 82550; 82553; 83690; 83735; 84484; 85025; 85610; 85730; 93005; 96374; 96376; 99284; J2060

== ENCOUNTER 2022-11-22 08:37 | Day surgery (SDC) | payer OTHER, SELFPAY ==
[2022-11-22 09:00] VITALS: BP 131/73; PULSE 80; RESP 16; TEMP 36.4; O2SAT 95; BMI 25.1
[2022-11-22] MEDS: LACTATED RINGERS 1,000 ML 150 ML IV (09:07)
--- NOTE | 2022-11-22 09:44 | P.HP_ITS ---
History of Present Illness History of Present Illness Date Patient Seen: 11/22/22 Time Patient Seen: 09:44 Chief complaint: Colonoscopy Narrative: Floyd is here for his colonoscopy. He thinks it has been about 5 years since his last scope. He has a family history of colon cancer and if personal history of polyps. 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 Smoking Status: Never smoker Meds Home Medications and Allergies Home Medications Medication Instructions Recorded Confirmed Type rosuvastatin 10 mg tablet 10 mg PO DAILY #90 tabs 05/08/22 11/22/22 Rx escitalopram oxalate 10 mg tablet mg PO 11/22/22 History escitalopram oxalate 5 mg tablet 5 mg PO DAILY 11/22/22 11/22/22 History (Lexapro) metronidazole 0.75 % topical gel 1 applic topical DAILY 11/22/22 11/22/22 History Allergies Allergy/AdvReac Type Severity Reaction Status Date / Time Penicillins Allergy Mild Rash Verified 11/22/22 08:47 olanzapine AdvReac Severe dystonic Verified 11/22/22 08:47 reaction Exam Vital Signs (past 8 hours): - 11/22/22 09:00 Temperature 97.5 F L Pulse Rate 80 Respiratory Rate 16 Blood Pressure 131/73 Pulse Oximetry 95 Oxygen Delivery Method Room Air Oxygen Delivery Method Room Air Const General: healthy appearing Assessment & Plan Assessment and plan (1) Colon cancer screening: Status: Acute Plan 67-year-old man with a personal history of colon polyps and a family history of colon cancer who is here for colonoscopy. We reviewed the risks and benefits of colonoscopy for colon cancer screening and he would like to proceed.
--- NOTE | 2022-11-22 10:35 | PM.OP.COLON ---
Operative Date/Time/Diagnoses Date of procedure: 11/22/22 Time of procedure: 10:35 Pre-op diagnosis: History of polyps Post-op diagnosis: same Procedure & Clinicians Study performed: Colonoscopy Same procedure as scheduled: Yes Surgeon: Ap Bethea Procedure Notes Procedure in detail: Surgeon: Ap Bethea MD Anesthesia: Eber Galeana CRNA Procedure: The patient was brought to the endoscopy suite, placed in left lateral decubitus position. The patient was connected to monitoring devices. A time-out was performed. Sedation was administered. Once the patient was adequately sedated, a digital rectal exam was performed and was normal. The scope was then inserted and advanced to the cecum where the appendiceal orifice was identified and photographed. The scope was then slowly withdrawn over greater than 6 minutes. The mucosa was thoroughly inspected. No abnormalities were seen. The scope was retroflexed in the rectum. No abnormalities were seen. The scope was straightened and removed. The patient was awakened and brought to recovery. Scope withdrawal time: 8 minutes Sedation time: 14 minutes EBL: 0 Findings: Normal colon Post-procedure Disposition: PACU
[2022-11-22 10:38] VITALS: BP 95/57; PULSE 71; RESP 20; TEMP 35.8; O2SAT 97
[2022-11-22 10:42] VITALS: BP 97/61; PULSE 68; RESP 21; O2SAT 94
[2022-11-22 10:47] VITALS: BP 100/61; PULSE 68; RESP 21; O2SAT 94
[2022-11-22 10:52] VITALS: BP 108/66; PULSE 84; RESP 13; TEMP 36.2; O2SAT 97
== END 2022-11-22 11:06 | disposition home or self-care (01) ==
PROVIDERS: PCP Internal Medicine; Referring Provider Surgery; Visit Provider Surgery
PROC: 0DJD8ZZ Inspection of Lower Intestinal Tract, Via Natural or Artificial Opening Endoscopic (ICD-10-PCS; CPT 45378; principal; 2022-11-22 09:45)
DX: Z12.11 Encounter for screening for malignant neoplasm of colon (principal); Z86.010 Personal history of colon polyps
CPT/HCPCS: 45378; J2704

== ENCOUNTER → 2023-05-17 15:37 | Outpatient (CLI) | payer MEDICARE, SELFPAY ==
[2023-05-17 17:22] LABS: HEMOLYSIS < 15 (0-50)
[2023-05-17 17:30] LABS: Aspartate Aminotransferase 24 IU/L (17-59); BUN Creatinine Ratio 24.3 (6-22); Blood Urea Nitrogen 18 mg/dL (9-20); Calcium 9.1 mg/dL (8.4-10.2); Carbon Dioxide 24 mmol/L (22-32); Chloride 106 mmol/L (98-107); Cholesterol 164 mg/dL (140-199); Estimated Glomerular Filt Rate > 60 mL/min (>60); Glucose 93 mg/dL (80-110); HDL Cholesterol 46 mg/dL (40-60); LDL Cholesterol Calculated 67 mg/dL (<100); Potassium 4.1 mmol/L (3.4-5.1); Sodium 137 mmol/L (137-145); Triglycerides 253 mg/dL (35-150)
[2023-05-17 18:51] LABS: Prostate Specific Antigen 0.696 ng/mL (0.10-4.00)
== END ==
PROVIDERS: PCP Internal Medicine; Referring Provider Internal Medicine; Visit Provider Internal Medicine
DX: E78.2 Mixed hyperlipidemia (principal); N40.1 Benign prostatic hyperplasia with lower urinary tract symptoms; N13.8 Other obstructive and reflux uropathy
CPT/HCPCS: 36415; 80048; 80061; 84153; 84450; 93005; 93010

== ENCOUNTER → 2024-02-18 09:23 | Outpatient (CLI) | payer MEDICARE, SELFPAY ==
--- NOTE | 2024-02-18 09:24 | DI.MRI.S_ITS ---
PROCEDURE: MR KNEE RT WO CON INDICATIONS: Unspecified internal derangement of right knee TECHNIQUE: Noncontrast sagittal PD fast spin echo and T2 fast spin echo with fat saturation, sagittal 3-D FLASH with fat saturation; coronal T1 spin echo and PD fast spin echo with fat saturation, and axial PD fast spin echo with fat saturation through the knee. COMPARISON: None. FINDINGS: Large popliteal cyst with surrounding edema and soft tissue fluid suggests partially ruptured popliteal cyst measuring up to approximately 6.5 cm cc (sagittal series 9, image 134) 3.0 cm transverse by 2.4 cm AP. Severe degenerative changes in the lateral compartment with near [id number] configuration. Markedly absent/degenerated lateral meniscus with marked internal signal/blunting of the anterior greater than posterior horns. Associated posterior parameniscal cysts measuring up to 1.5 cm. Mild degenerative changes with blunting of the apices of the anterior and posterior horns of the medial meniscus and soft tissue edema/fluid posterior to the posterior horn suggests meniscocapsular separation. Edema and fluid posterior to the medial meniscus posterior horn suggestive of meniscocapsular separation. Cruciate ligaments: Increased T2 weighted signal and thickening of the anterior and posterior cruciate ligaments but with intact fibers suggests injury/strain most notably in the proximal posterior cruciate ligament without full-thickness tear. Medial structures: Mildly increased T2 weighted signal surrounding the medial collateral ligament suggests grade 1 injury. Mild increased T2 weighted signal of the distal semimembranosus tendon and of the posterior oblique ligament. Semitendinosis tendon is normal in signal and thickness. Lateral structures: Abnormal increased T2 weighted signal/thickening of the distal popliteus and distal lateral head of the gastrocnemius muscles and tendons. Mild thickening of the lateral collateral ligament, popliteal fibular and popliteal meniscal ligament. The biceps femoris tendon appears intact. Iliotibial band appears normal. Anterior structures: The quadriceps and patellar tendons appear intact. Patellar alignment is normal. No femoral trochlear dysplasia or ventral trochlear prominence. Bones and cartilage: 1.4 cm diameter intermediate T1, high T2 cystic structure in the posterior aspect of the medial tibial plateau. Subchondral edema in the tibial eminence and in the medial tibial plateau most likely related to chronic degenerative changes with subchondral edema. Subtle nondepressed tibial plateau fracture considered less likely. Moderate knee joint effusion. IMPRESSION: Numerous abnormal findings as discussed above most likely related to chronic degenerative changes as well as a suspected large partially ruptured popliteal cyst and moderate knee joint effusion. Evidence of injury/strain in multiple tendons, ligaments, may be chronic or related to altered biomechanics as discussed above Severe degenerated lateral meniscus and mild degenerative changes of the medial meniscus and medial compartment. Edema and fluid posterior to the menisci suggestive of meniscocapsular separation. 1.4 cm cystic structure in the posterior aspect of the medial tibial plateau. Subchondral edema in the tibial eminence and in the medial tibial plateau most likely related to chronic degenerative changes with subchondral edema. Subtle nondepressed tibial plateau fracture considered less likely. Follow-up suggested. Dictated by: Ananth Ramos M.D. on 02/18/2024 at 15:08 Approved by: Ananth Ramos M.D. on 02/18/2024 at 15:38
== END ==
PROVIDERS: PCP Internal Medicine; Referring Provider Orthopaedic Surgery; Visit Provider Orthopaedic Surgery
DX: M23.91 Unspecified internal derangement of right knee (principal); M71.21 Synovial cyst of popliteal space [Baker], right knee; M25.461 Effusion, right knee
CPT/HCPCS: 73721

== ENCOUNTER → 2024-05-19 09:22 | Outpatient (CLI) | payer MEDICARE, SELFPAY ==
[2024-05-19 11:04] LABS: Aspartate Aminotransferase 26 IU/L (17-59); BUN Creatinine Ratio 18.5 (6-22); Blood Urea Nitrogen 15 mg/dL (9-20); Calcium 9.4 mg/dL (8.4-10.2); Carbon Dioxide 26 mmol/L (22-32); Chloride 105 mmol/L (98-107); Cholesterol 249 mg/dL (140-199); Estimated Glomerular Filt Rate > 60 mL/min (>60); Glucose 98 mg/dL (80-110); HDL Cholesterol 58 mg/dL (40-60); HEMOLYSIS < 15 (0-50); LDL Cholesterol Calculated 169 mg/dL (<100); Potassium 4.3 mmol/L (3.4-5.1); Sodium 137 mmol/L (137-145); Triglycerides 111 mg/dL (35-150)
[2024-05-19 11:33] LABS: Prostate Specific Antigen 0.795 ng/mL (0.10-4.00)
== END ==
LOC: LAB 09:23
PROVIDERS: PCP Internal Medicine; Referring Provider Internal Medicine; Visit Provider Internal Medicine
DX: E78.2 Mixed hyperlipidemia (principal); N40.1 Benign prostatic hyperplasia with lower urinary tract symptoms; N13.8 Other obstructive and reflux uropathy
CPT/HCPCS: 36415; 80048; 80061; 84153; 84450

== ENCOUNTER → 2024-07-07 08:28 | Outpatient (CLI) | payer MEDICARE, SELFPAY ==
[2024-07-07 09:33] LABS: Hematocrit 44.4 % (41-53); Mean Corpuscular HGB Conc 33.7 % (30-36); Mean Corpuscular Hemoglobin 31.8 PG (26-34); Mean Corpuscular Volume 94.3 fL (80-100); Platelet Count 367 X10^3/uL (150-400); Red Blood Cell Count 4.71 X10^6/uL (4.5-5.9); Red Cell Distribution Width 13.1 % (11.6-14.8); White Blood Cell Count 6.8 X10^3/uL (4.5-11.0)
[2024-07-07 10:01] LABS: BUN Creatinine Ratio 14.1 (6-22); Blood Urea Nitrogen 12 mg/dL (9-20); Calcium 9.6 mg/dL (8.4-10.2); Carbon Dioxide 22 mmol/L (22-32); Chloride 105 mmol/L (98-107); Estimated Glomerular Filt Rate > 60 mL/min (>60); Glucose 95 mg/dL (80-110); HEMOLYSIS < 15 (0-50); Potassium 4.5 mmol/L (3.4-5.1); Sodium 135 mmol/L (137-145)
== END ==
PROVIDERS: PCP Internal Medicine
DX: Z01.818 Encounter for other preprocedural examination (principal)
CPT/HCPCS: 36415; 80048; 85027

== ENCOUNTER → 2025-05-20 08:44 | Outpatient (CLI) | payer MEDICARE, SELFPAY ==
[2025-05-20 08:58] LABS: Hematocrit 44.2 % (41-53); Hemoglobin 15.2 g/dL (13.5-17.5); Mean Corpuscular HGB Conc 34.4 % (30-36); Mean Corpuscular Hemoglobin 32.0 PG (26-34); Mean Corpuscular Volume 93.0 fL (80-100); Platelet Count 356 X10^3/uL (150-400)
[2025-05-20 10:21] LABS: Alanine Aminotransferase 23 IU/L (<50); Albumin 4.7 g/dL (3.5-5.0); Albumin Globulin Ratio 1.7 (1.0-2.8); Alkaline Phosphatase 80 U/L (38-126); Blood Urea Nitrogen 11 mg/dL (9-20); Calcium 9.9 mg/dL (8.4-10.2); Carbon Dioxide 27 mmol/L (22-32); Chloride 103 mmol/L (98-107); Estimated Glomerular Filt Rate > 60 mL/min (>60); Globulin 2.7 g/dL (1.7-4.1); Glucose 113 mg/dL (70-99); HEMOLYSIS < 15 (0-50); Potassium 4.2 mmol/L (3.4-5.1); Sodium 140 mmol/L (137-145); Total Protein 7.4 g/dL (6.3-8.2)
[2025-05-20 10:52] LABS: Prostate Specific Antigen 0.786 ng/mL (0.10-4.00)
[2025-05-20 10:54] LABS: TSH w/ Reflex to FT4 0.98 uIU/mL (0.47-4.68)
== END ==
PROVIDERS: PCP Internal Medicine; Referring Provider Internal Medicine; Visit Provider Internal Medicine
DX: N40.1 Benign prostatic hyperplasia with lower urinary tract symptoms (principal); N13.8 Other obstructive and reflux uropathy; E78.2 Mixed hyperlipidemia; I10 Essential (primary) hypertension
CPT/HCPCS: 36415; 80053; 84153; 84443; 85027